=== PATIENT | female | born 1960 | race Caucasian/White ===

== ENCOUNTER 2020-07-03 13:53 | Emergency (ER) | payer OTHER ==
[2020-07-03] MEDS ORDERED: Acetaminophen 500 MG TAB ONE (14:29)
[2020-07-03] MEDS ORDERED: Aspirin Chewable 81 MG TAB ONE (14:29)
--- NOTE | 2020-07-03 14:50 | RAD ---
EXAM: Single view of the chest HISTORY: Chest pain and lethargy. Covid positive COMPARISON: None FINDINGS: Single view of the chest shows a normal sized cardiomediastinal silhouette. There may be jang btle bilateral lower lobe opacities which could represent infiltrates. No acute osseous abnormality. IMPRESSION: Possible bilateral lower lobe infiltrates
[2020-07-03 15:25] LABS: #Eosinphils 0.1 thou/uL (0.0-0.7); #Lymphocytes 1.6 thou/uL (1.20-3.40); #Monocytes 0.6 thou/uL (0.11-0.59); #Neutrophils 3.9 thou/uL (1.40-6.50); %Basophils 0.1 % (0.0-1.0); %Eosinophils 0.9 % (0.0-10.0); %Lymphocytes 26.4 % (21.0-51.0); %Monocytes 9.7 % (0.0-10.0); %Neutrophils 62.9 % (42.0-75.0); Hemoglobin 14.6 g/dL (12.0-16.0); Mean Corpuscular HGB CONC 35.1 g/dL (32.0-36.0); Mean Corpuscular Hemoglobin 30.3 pg (27.0-31.0); Mean Corpuscular Volume 86.3 fL (78.0-98.0); Mean Platelet Volume 7.5 fL (7.4-10.4); Platelet Count 218 thou/uL (130-400); RBC Distribution Width 12.6 % (11.5-14.5); Red Blood Cell (RBC) Count 4.84 mill/uL (4.20-5.40); White Blood Cell (WBC) Count 6.2 thou/uL (4.8-10.8)
[2020-07-03 15:53] LABS: Albumin 3.8 g/dL (3.4-4.8); Anion Gap 14 mmol/L (10-20); BUN (Urea Nitrogen) 10 mg/dL (9.8-20.1); Bilirubin, Total 0.4 mg/dL (0.2-1.2); Calc. Creatinine Clearance 0 mL/min (70-130); Calcium 9.1 mg/dL (7.8-10.44); Carbon Dioxide 23 mmol/L (23-31); Chloride 101 mmol/L (98-107); Estimated GFR-MDRD 80; Glucose 100 mg/dL (80-115); Potassium 3.9 mmol/L (3.5-5.1); Protein, Total 7.2 g/dL (6.0-8.3); Sodium 134 mmol/L (136-145)
[2020-07-03 15:54] LABS: ALT (SGPT) 14 U/L (8-55); AST (SGOT) 20 U/L (5-34); Alkaline Phosphatase 74 U/L (40-110); Globulin 3.4 g/dL (2.4-3.5)
[2020-07-03] MEDS ORDERED: Azithromycin 250 MG TAB ONE (15:56)
== END 2020-07-03 16:52 | disposition home or self-care (01) ==
LOC: ERS 13:53
DX: U07.1 COVID-19 (principal); J12.89 Other viral pneumonia; K02.9 Dental caries, unspecified; F41.9 Anxiety disorder, unspecified
CPT/HCPCS: 36415; 71045; 80053; 83605; 83880; 84484; 85025; 93005